=== PATIENT | female | born 1980 | race Caucasian/White ===

== ENCOUNTER 2021-12-05 15:46 | Emergency (ER) | payer SELFPAY ==
[2021-12-05 16:36] VITALS: BP 121/82; PULSE 81; RESP 18; TEMP 98.2; BMI 38.0
[2021-12-05] MEDS ORDERED: DEXAMETHASONE LIQUID 0.5 MG/5 ML PO ONE (17:05)
[2021-12-05] MEDS ORDERED: KETOROLAC TROMETHAMINE 30 MG/1 ML VIAL IM ONE (17:06)
[2021-12-05] MEDS ORDERED: DEXAMETHASONE SOD PHOSPHATE 10 MG/1 ML VIAL ONE (17:15)
[2021-12-05] MEDS ORDERED: KETOROLAC TROMETHAMINE 30 MG/1 ML VIAL ONE (17:15)
[2021-12-05 18:08] LABS: THROAT:GRP A STREP NOT DETECTED (NOTDETECTED)
== END 2021-12-05 17:25 | disposition home or self-care (01) ==
LOC: JER 15:46
PROC: 3E023GC Introduction of Other Therapeutic Substance into Muscle, Percutaneous Approach (ICD-10-PCS; principal; 2021-12-05)
DX: K12.2 Cellulitis and abscess of mouth (principal)
CPT/HCPCS: 0241U-QW; 87651; 99284-25

== ENCOUNTER 2023-12-30 22:07 | Emergency (ER) | payer OTHER ==
[2023-12-30 22:19] VITALS: BP 143/88; PULSE 96; RESP 20; TEMP 98.4; BMI 36.9
[2023-12-30] MEDS ORDERED: BISACODYL 10 MG SUPP.RECT ONE (23:38)
[2023-12-30] MEDS ORDERED: DOCUSATE SODIUM 100 MG CAPSULE (FP) PO ONE (23:38)
[2023-12-30] MEDS: BISACODYL 10 MG SUPP.RECT PR ONE (23:42)
[2023-12-30] MEDS: DOCUSATE SODIUM 100 MG CAPSULE (FP) PO ONE (23:42)
[2023-12-30] MEDS: BISACODYL 5 MG TABLET.DR (FP) PO ONE (23:44)
[2023-12-31 00:50] LABS: HIV INTERPRETATION NEGATIVE (NEGATIVE)
== END 2023-12-30 23:52 | disposition home or self-care (01) ==
LOC: JER 22:07
DX: K59.00 Constipation, unspecified (principal)
CPT/HCPCS: 36415; 74019-TC-FY; 86803; 87389; 99284-25